=== PATIENT | female | born 1975 | race Caucasian/White ===

== ENCOUNTER 2017-11-07 13:00 | Emergency (ER) | payer OTHER ==
[~2017-11-07] VITALS: Ht 160 cm; Wt 54.4 kg
[~2017-11-07 13:00] MED LIST: IBUPROFEN600 MG ORAL
[2017-11-07 13:10] VITALS: BP 133/82
[2017-11-07] MEDS ORDERED: PREDNISONE20 MG ORAL (13:43)
[2017-11-07] MEDS ORDERED: DIPHENHYDRAMINE25 M1 ORAL (13:43)
[2017-11-07] MEDS ORDERED: ACETAMINOPHEN-1 EAC1 ORAL (13:43)
[2017-11-07 14:05] VITALS: BP 133/82
--- NOTE | 2017-11-08 15:50 | Emergency Room Report ---
History of Present Illness General Chief Complaint: Pain Source: Patient Present Illness HPI 42-year-old female presents to ED for evaluation. Patient states she had a cavity filled in her tooth yesterday by her dentist. States she presents with pain and swelling to her left lower cheek today. Pain is a 10 out of 10, throbbing, nonradiating. Denies fevers or chills. Denies any discharge. Also notes bruising to the cheek. Denies any blood thinners. Denies any tongue swelling or throat swelling. No other aggravating or relieving factors. Denies any other associated symptoms Allergies: Coded Allergies: No Known Allergies (Unverified , 11/15/15) Patient History Past Medical History: none Past Surgical History: none Pertinent Family History: none Social History: Denies: smoking, alcohol use, drug use Last Menstrual Period: 10/23/17 Now: No Immunizations: UTD Reviewed Nursing Documentation: PMH: Agreed, PSxH: Agreed Nursing Documentation-PMH Past Medical History: No Stated History Review of Systems All Other Systems: negative except mentioned in HPI Physical Exam Vital Signs Date Time Temp Pulse Resp B/P (MAP) Pulse Ox O2 Delivery O2 Flow Rate FiO2 11/07/17 13:10 97.7 67 18 133/82 97 Room Air 97.7 Sp02 EP Interpretation: reviewed, normal General Appearance: no apparent distress, alert, GCS 15, non-toxic Head: normocephalic Eyes: bilateral eye normal inspection, bilateral eye PERRL ENT: hearing grossly normal, no angioedema, normal voice, TMs + canals normal, other - bruising to L lower jaw. some swelling noted. no fluctuance. Neck: full range of motion, no meningismus, supple/symm/no masses Respiratory: normal inspection Cardiovascular #1: normal inspection Gastrointestinal: normal inspection Rectal: deferred Genitourinary: no CVA tenderness Musculoskeletal: normal inspection Neurologic: alert, oriented x3, responsive, motor strength/tone normal, sensory intact, speech normal Psychiatric: normal inspection Skin: normal inspection Lymphatic: normal inspection Medical Decision Making Diagnostic Impression: Primary Impression: Pain, dental ER Course 42-year-old female presents ED complaining of pain/swellling to lower jaw, s/p tooth cavity filled Cracked tooth, dental abscess, cavity Patient placed on stretcher. After initial history, physical exam reveals a female in mild distress. There is some swelling and bruising to the left lower jaw in proximity to where the cavity was filled. No fluctuance. No discharge. No induration or erythema. Bruising is appreciated Discussed findings to patient. Swelling to either be postoperative infection versus swelling due to lidocaine injection Patient was prescribed amoxicillin by her dentist today. Encourage patient is a prescription. I will prescribe her with stronger pain medications. I do not suspect a allergic reaction Diagnosis- dental pain Stable and discharged to home prescription for Tylenol #3. continue amoxicillin as prescribed. warm compresses. Instructed to followup with dentist. Return to ED if symptoms recur or worse Last Vital Signs Date Time Temp Pulse Resp B/P (MAP) Pulse Ox O2 Delivery O2 Flow Rate FiO2 11/07/17 14:05 97.7 67 18 133/82 97 Room Air 97.7 Status: improved Disposition: HOME, SELF-CARE Condition: Stable Scripts Prednisone* (PREDNISONE*) 20 Mg Tablet 40 MG ORAL DAILY, #10 TAB Prov: KIKO JIMÉNEZ M.D. 11/07/17 Diphenhydramine Hcl* (DIPHENHYDRAMINE HCL*) 25 Mg Capsule 25 MG ORAL Q6H Y for Itching for 5 Days, #30 CAP 0 Refills Prov: KIKO JIMÉNEZ M.D. 11/07/17 Acetaminophen With Codeine (T#3) (TYLENOL #3 TAB*) Y Tab 1 TAB ORAL Q8H Y for For Pain, #20 TAB Prov: KIKO JIMÉNEZ M.D. 11/07/17 Referrals: [facility],REFERRING (PCP) Patient Instructions: Dental Pain, [id number] KIKO JIMÉNEZ M.D. Nov 08, 2017 15:50
== END 2017-11-07 14:06 | disposition home or self-care (01) ==
LOC: EMR 13:45
DX: K08.89 Other specified disorders of teeth and supporting structures (principal)
CPT/HCPCS: 99282